=== PATIENT | female | born 1995 | race African-American/Black ===

== ENCOUNTER 2021-11-12 15:22 | Emergency (ER) | payer SELFPAY ==
[2021-11-12 16:16] LABS: Pregnancy Test - Urine (BHCG) Negative (Negative); Pregu Control Background? CLEAR/WHITE (CLR/WHITE); Pregu Control Bar Appear? YES (CONTROL BAR); Specific Gravity 1.027 (1.002-1.036)
[2021-11-12 16:17] LABS: Bilirubin Negative (Negative); Clarity Turbid (Clear); Glucose, Urine (Dipstick) Negative (Negative); Ketone, Urine Negative (Negative); Leukocyte Trace (Negative); Nitrite Negative (Negative); Protein, Urine (Dipstick) Negative (Neg-Trace); Specific Gravity, Urine 1.027 (1.002-1.036); Urobilinogen 0.2 mg/dL (Less than 2)
[2021-11-12 16:18] LABS: Blood, Urine Negative (Negative)
[2021-11-12 16:19] LABS: Bacteria/HPF 1+ HPF (None Seen); RBC/HPF 0-3 HPF (0-3)
[2021-11-12] MEDS ORDERED: cefTRIAXone\\ROCEPHIN 1 GM VIAL ONE (16:37)
[2021-11-12] MEDS ORDERED: Lidocaine 1% 20 ML MDV ONE (16:37)
[2021-11-12] MEDS ORDERED: metroNIDAZOLE 500 MG TAB ONE (16:39)
[2021-11-13 12:23] LABS: Chlamydia by PCR DETECTED (NotDetected); GC by PCR Not Detected (NotDetected)
== END 2021-11-12 17:11 | disposition home or self-care (01) ==
LOC: NAV ERS 15:22
DX: N72 Inflammatory disease of cervix uteri (principal); F17.210 Nicotine dependence, cigarettes, uncomplicated
CPT/HCPCS: 81003; 81015; 81025; 87480; 87491; 87510; 87591; 87660; 96372; 99284; J0696